=== PATIENT | male | born 1965 | race Caucasian/White ===

== ENCOUNTER 2018-10-15 10:11 | Emergency (ER) | payer OTHER ==
[~2018-10-15] VITALS: Ht 175.3 cm; Wt 75.0 kg
[~2018-10-15 10:11] MED LIST: OTC MED
[2018-10-15] MEDS ORDERED: LORAZEPAM 2MG/ML CPJ IV ONE (10:45)
[2018-10-15 11:30] LABS: BASOPHILS % 1.3 % (0.0-2.0); EOSINOPHILS % 1.7 % (0.0-5.0); HEMATOCRIT. 47.2 % (42.0-52.0); HEMOGLOBIN. 16.7 g/dL (14.0-18.0); LYMPHOCYTES % 19.9 % (20.0-50.0); MEAN CORPUSCULAR HEMOGLOBIN 36.5 pg (28.0-32.0); MEAN CORPUSCULAR VOLUME 103.2 fL (80.0-94.0); MEAN PLATELET VOLUME 7.8 fl (7.4-10.4); MONOCYTES % 12.4 % (2.0-8.0); NEUTROPHILS % 64.7 % (40.0-76.0); PLATELET 203 x1000/uL (130-400); RED BLOOD CELL COUNT 4.57 mill/uL (4.7-6.1); RED CELL DISTRIBUTION WIDTH 14.1 % (11.6-14.6)
[2018-10-15 11:36] LABS: CHLORIDE 102 mEq/L (98-107)
[2018-10-15 11:40] LABS: ETHANOL BLOOD 62 mg/dL
[2018-10-15 11:43] LABS: *AMPHETAMINES SCREEN URINE NEGATIVE (NEGATIVE); *BARBITURATES SCREEN URINE NEGATIVE (NEGATIVE); *BENZODIAZEPINES SCREEN URINE NEGATIVE (NEGATIVE); *COCAINE SCREEN URINE NEGATIVE (NEGATIVE)
[2018-10-15 11:44] LABS: CANNABINOID URINE SCREEN NEGATIVE (NEGATIVE); METHADONE URINE SCREEN NEGATIVE (NEGATIVE); OPIATES URINE SCREEN NEGATIVE (NEGATIVE); PHENCYCLIDINE URINE SCREEN NEGATIVE (NEGATIVE)
[2018-10-15 15:00] VITALS: BP 145/85
== END 2018-10-15 16:17 | disposition home or self-care (01) ==
LOC: ER 10:11
DX: F10.20 Alcohol dependence, uncomplicated (principal); I10 Essential (primary) hypertension; Y90.3 Blood alcohol level of 60-79 mg/100 ml
CPT/HCPCS: 36415; 71045; 80053; 80305; 80320; 83690; 83880; 84484; 85025; 93005; 96374; 99284; J2060; G0480

== ENCOUNTER 2021-04-22 09:20 | Emergency (ER) | payer OTHER ==
[~2021-04-22] VITALS: Ht 175.3 cm; Wt 77.0 kg
[2021-04-22 10:33] LABS: BASOPHILS % 2.7 % (0.0-2.0); EOSINOPHILS % 0.9 % (0.0-5.0); HEMATOCRIT. 44.9 % (42.0-52.0); HEMOGLOBIN. 15.1 g/dL (14.0-18.0); LYMPHOCYTES % 24.7 % (20.0-50.0); MEAN CORPUSCULAR HEMOGLOBIN 36.6 pg (28.0-32.0); MEAN CORPUSCULAR VOLUME 108.8 fL (80.0-94.0); MEAN PLATELET VOLUME 8.4 fl (7.4-10.4); MONOCYTES % 8.1 % (2.0-8.0); NEUTROPHILS % 63.6 % (40.0-76.0); PLATELET 122 x1000/uL (130-400); RED BLOOD CELL COUNT 4.13 mill/uL (4.7-6.1); RED CELL DISTRIBUTION WIDTH 13.3 % (11.6-14.6)
[2021-04-22 10:40] LABS: CHLORIDE 97 mEq/L (98-107)
[2021-04-22 11:52] VITALS: BP 108/63
== END 2021-04-22 12:12 | disposition home or self-care (01) ==
LOC: ER 09:34
DX: R06.00 Dyspnea, unspecified (principal); F10.20 Alcohol dependence, uncomplicated; Y90.9 Presence of alcohol in blood, level not specified; I10 Essential (primary) hypertension
CPT/HCPCS: 36415; 71045; 80053; 83880; 84484; 85025; 99284

== ENCOUNTER 2021-05-08 09:16 | Emergency (ER) | payer OTHER ==
[~2021-05-08] VITALS: Ht 162.6 cm; Wt 88.0 kg
[2021-05-08] MEDS ORDERED: METHOCARBAMOL 500MG TABLET PO ONE (09:45)
[2021-05-08] MEDS ORDERED: IBUPROFEN 800MG TABLET PO ONE (09:45)
[2021-05-08 11:35] VITALS: BP 160/85
[2021-05-08] MEDS ORDERED: NAPR-679 MT (11:40)
[2021-05-08] MEDS ORDERED: METH-773 MT (11:40)
== END 2021-05-08 11:40 | disposition home or self-care (01) ==
LOC: ER 09:16
DX: S20.211A Contusion of right front wall of thorax, initial encounter (principal); I10 Essential (primary) hypertension; F17.210 Nicotine dependence, cigarettes, uncomplicated; F10.20 Alcohol dependence, uncomplicated; Y90.9 Presence of alcohol in blood, level not specified; Z71.6 Tobacco abuse counseling; W01.0XXA Fall on same level from slipping, tripping and stumbling without subsequent striking against object, initial encounter; Y93.89 Activity, other specified; Y92.89 Other specified places as the place of occurrence of the external cause
CPT/HCPCS: 71101; 99283; 99406

== ENCOUNTER 2021-05-23 20:22 | Emergency (ER) | payer OTHER ==
[~2021-05-23] VITALS: Ht 177.8 cm; Wt 82.0 kg
[~2021-05-23 20:22] MED LIST changes: +METH-773 MT; +NAPR-679 MT
[2021-05-23] MEDS ORDERED: SODIUM CHLORIDE 0.9% 1,000 ML IV ONE (20:45)
[2021-05-23] MEDS ORDERED: LIDOCAINE 5% PATCH TOP SCH (20:45)
[2021-05-23 21:06] LABS: HEMATOCRIT. 39.4 % (42.0-52.0); HEMOGLOBIN. 13.8 g/dL (14.0-18.0); MEAN CORPUSCULAR HEMOGLOBIN 36.7 pg (28.0-32.0); MEAN CORPUSCULAR VOLUME 105.1 fL (80.0-94.0); MEAN PLATELET VOLUME 7.7 fl (7.4-10.4); PLATELET 131 x1000/uL (130-400); RED BLOOD CELL COUNT 3.75 mill/uL (4.7-6.1); RED CELL DISTRIBUTION WIDTH 13.9 % (11.6-14.6)
[2021-05-23 21:14] LABS: CHLORIDE 100 mEq/L (98-107)
[2021-05-23 21:19] LABS: PLATELET ESTIMATE NORMAL
[2021-05-23 21:31] LABS: ETHANOL BLOOD 465 mg/dL
[2021-05-24] MEDS ORDERED: LIDO700A15 TP (01:39)
[2021-05-24] MEDS ORDERED: IBUP-2029 MT (01:39)
[2021-05-24] MEDS ORDERED: KETOROLAC 15MG/ML VIAL IV SCH (01:45)
[2021-05-24] MEDS ORDERED: CHLORDIAZEPOXIDE 25MG CAPSULE PO ONE (08:15)
[2021-05-24 08:30] VITALS: BP 150/74
== END 2021-05-24 08:37 | disposition home or self-care (01) ==
LOC: ER 20:22
DX: S22.41XA Multiple fractures of ribs, right side, initial encounter for closed fracture (principal); X58.XXXA Exposure to other specified factors, initial encounter; Y93.89 Activity, other specified; Y92.89 Other specified places as the place of occurrence of the external cause; Y99.8 Other external cause status; F10.229 Alcohol dependence with intoxication, unspecified; I10 Essential (primary) hypertension; Z79.899 Other long term (current) drug therapy; Y90.8 Blood alcohol level of 240 mg/100 ml or more
CPT/HCPCS: 36415; 71250; 80053; 80307; 80320; 80329; 85025; 96361; 96374; 99285; J1885; J7030; G0480

== ENCOUNTER 2021-06-03 18:22 | Emergency (ER) | payer OTHER ==
[~2021-06-03] VITALS: Ht 175.3 cm; Wt 75.0 kg
[~2021-06-03 18:22] MED LIST changes: +IBUP-2029 MT; +LIDO700A15 TP
[2021-06-03 18:23] VITALS: BP 124/68
== END 2021-06-03 20:48 | disposition left against medical advice (07) ==
LOC: ER 18:22
DX: F10.229 Alcohol dependence with intoxication, unspecified (principal); Y90.9 Presence of alcohol in blood, level not specified; I10 Essential (primary) hypertension; L40.9 Psoriasis, unspecified
CPT/HCPCS: 99283

== ENCOUNTER 2021-06-25 12:53 | Emergency (ER) | payer OTHER ==
[~2021-06-25] VITALS: Ht 175.3 cm; Wt 77.0 kg
[2021-06-25 12:58] VITALS: BP 114/67
[2021-06-25] MEDS ORDERED: SODIUM CHLORIDE 0.9% 1,000 ML IV ONE (14:45)
[2021-06-25 14:57] LABS: BASOPHILS % 2.8 % (0.0-2.0); EOSINOPHILS % 3.5 % (0.0-5.0); HEMATOCRIT. 38.4 % (42.0-52.0); HEMOGLOBIN. 13.3 g/dL (14.0-18.0); LYMPHOCYTES % 24.4 % (20.0-50.0); MEAN CORPUSCULAR HEMOGLOBIN 36.2 pg (28.0-32.0); MEAN CORPUSCULAR VOLUME 104.7 fL (80.0-94.0); MEAN PLATELET VOLUME 7.2 fl (7.4-10.4); MONOCYTES % 12.1 % (2.0-8.0); NEUTROPHILS % 57.2 % (40.0-76.0); PLATELET 173 x1000/uL (130-400); RED BLOOD CELL COUNT 3.67 mill/uL (4.7-6.1); RED CELL DISTRIBUTION WIDTH 14.8 % (11.6-14.6)
[2021-06-25] MEDS ORDERED: TETANUS, DIPHTHERIA, PERTUSSIS VAC/PF 0.5ML (>10YR OLD) IM ONE (15:00)
[2021-06-25 15:22] LABS: CHLORIDE 107 mEq/L (98-107)
[2021-06-25 16:05] LABS: ETHANOL BLOOD 444 mg/dL
== END 2021-06-25 18:05 | disposition left against medical advice (07) ==
LOC: ER 12:53
DX: F10.129 Alcohol abuse with intoxication, unspecified (principal); I10 Essential (primary) hypertension; Y90.8 Blood alcohol level of 240 mg/100 ml or more
CPT/HCPCS: 36415; 70450; 80053; 80320; 85025; 99284; J7030; G0480

== ENCOUNTER 2021-10-08 15:25 | Emergency (ER) | payer OTHER ==
[~2021-10-08] VITALS: Ht 175.3 cm; Wt 73.0 kg
[2021-10-08 15:57] VITALS: BP 144/90
== END 2021-10-08 20:20 | disposition left against medical advice (07) ==
LOC: ER 15:25
DX: Z53.21 Procedure and treatment not carried out due to patient leaving prior to being seen by health care provider (principal)

== ENCOUNTER 2021-10-12 22:11 | Inpatient (IN) | payer OTHER ==
[~2021-10-12] VITALS: Ht 170.2 cm; Wt 77.1 kg
[2021-10-13] MEDS ORDERED: SODIUM CHLORIDE 0.9% 1,000 ML IV ONE
[2021-10-13 02:31] LABS: BASOPHILS % 3.6 % (0.0-2.0); EOSINOPHILS % 4.3 % (0.0-5.0); HEMATOCRIT. 42.9 % (42.0-52.0); HEMOGLOBIN. 14.7 g/dL (14.0-18.0); LYMPHOCYTES % 27.2 % (20.0-50.0); MEAN CORPUSCULAR HEMOGLOBIN 33.9 pg (28.0-32.0); MEAN CORPUSCULAR VOLUME 98.9 fL (80.0-94.0); MEAN PLATELET VOLUME 8.4 fl (7.4-10.4); MONOCYTES % 10.8 % (2.0-8.0); NEUTROPHILS % 54.1 % (40.0-76.0); PLATELET 128 x1000/uL (130-400); RED BLOOD CELL COUNT 4.34 mill/uL (4.7-6.1); RED CELL DISTRIBUTION WIDTH 16.9 % (11.6-14.6)
[2021-10-13 02:37] LABS: CHLORIDE 97 mEq/L (98-107)
[2021-10-13 03:09] LABS: CLARITY URINE CLEAR (CLEAR); COLOR URINE YELLOW (YELLOW); KETONES URINE NEGATIVE (NEGATIVE); LEUKOCYTE ESTERASE URINE NEGATIVE (NEGATIVE); NITRITE URINE NEGATIVE (NEGATIVE); OCCULT BLOOD URINE NEGATIVE (NEGATIVE); PH URINE 6.5 (4.5-8.0); PROTEIN URINE NEGATIVE (NEGATIVE); SPECIFIC GRAVITY URINE 1.008 (1.005-1.030)
[2021-10-13] MEDS ORDERED: CEFTRIAXONE 1 G PREMIX 50 ML IV ONE (05:00)
[2021-10-13] MEDS ORDERED: SODIUM CHLORIDE 0.9% 1000ML BAG (SEPSIS BOLUS) IV ONE (05:00)
[2021-10-13] MEDS ORDERED: AZITHROMYCIN 500MG/250ML 250 ML IV ONE (05:00)
[2021-10-13 16:45] VITALS: BP 142/85
[2021-10-13] MEDS ORDERED: ONDANSETRON HCL 4MG/2ML INJ IV PRN (19:45)
[2021-10-13] MEDS ORDERED: SODIUM CHLORIDE 0.9% 1,000 ML IV SCH (19:45)
[2021-10-13] MEDS ORDERED: THIAMINE HCL 100MG TABLET PO NR (19:45)
[2021-10-13] MEDS ORDERED: CLONIDINE 0.1MG TABLET PO PRN (19:45)
[2021-10-13 20:00] VITALS: BP 125/75
[2021-10-13] MEDS: FOLIC ACID 1MG TABLET PO SCH (21:04)
[2021-10-13] MEDS: MULTIVITAMINS,THER W-MINERALS TABLET PO SCH (21:04)
[2021-10-13] MEDS: LORAZEPAM 1MG TABLET PO PRN (21:04)
[2021-10-13] MEDS: CHLORDIAZEPOXIDE 25MG CAPSULE PO SCH (22:44)
[2021-10-14] VITALS: BP 110/88
[2021-10-14 04:00] VITALS: BP 118/78
[2021-10-14] MEDS: CHLORDIAZEPOXIDE 25MG CAPSULE PO SCH ×3 (05:26→21:26)
[2021-10-14 06:48] LABS: BASOPHILS % 1.3 % (0.0-2.0); HEMATOCRIT. 37.3 % (42.0-52.0); HEMOGLOBIN. 12.9 g/dL (14.0-18.0); MEAN CORPUSCULAR HEMOGLOBIN 34.4 pg (28.0-32.0); MEAN CORPUSCULAR VOLUME 99.4 fL (80.0-94.0); MONOCYTES % 12.4 % (2.0-8.0); NEUTROPHILS % 63.3 % (40.0-76.0); PLATELET 99 x1000/uL (130-400); RED BLOOD CELL COUNT 3.75 mill/uL (4.7-6.1); RED CELL DISTRIBUTION WIDTH 16.6 % (11.6-14.6)
[2021-10-14 07:37] LABS: CHLORIDE 96 mEq/L (98-107)
[2021-10-14 08:00] VITALS: BP_SYST 114; BP_SYST 99; BP_DIAS 74; BP_DIAS 78
[2021-10-14] MEDS: THIAMINE HCL 100MG TABLET PO SCH (09:58)
[2021-10-14] MEDS: FOLIC ACID 1MG TABLET PO SCH (09:58)
[2021-10-14] MEDS: MULTIVITAMINS,THER W-MINERALS TABLET PO SCH (09:59)
[2021-10-14 12:00] VITALS: BP 113/69
[2021-10-14 16:00] VITALS: BP 109/80
[2021-10-14 20:00] VITALS: BP 98/59
[2021-10-15] VITALS: BP 113/74
[2021-10-15 04:00] VITALS: BP 134/92
[2021-10-15] MEDS: CHLORDIAZEPOXIDE 25MG CAPSULE PO SCH ×2 (05:31→14:58)
[2021-10-15] MEDS: THIAMINE HCL 100MG TABLET PO SCH (10:16)
[2021-10-15] MEDS: LORAZEPAM 1MG TABLET PO PRN ×2 (10:16→14:58)
[2021-10-15] MEDS: MULTIVITAMINS,THER W-MINERALS TABLET PO SCH (10:21)
[2021-10-15] MEDS: FOLIC ACID 1MG TABLET PO SCH (10:21)
[2021-10-15 16:42] VITALS: BP 120/84
== END 2021-10-15 17:50 | disposition home or self-care (01) | DRG 641 ==
LOC: ER 22:11 → 6WST 10-13 05:03
PROVIDERS: ADMIT Internal Medicine; ATTEND Internal Medicine
DX: E87.6 Hypokalemia (principal); F10.239 Alcohol dependence with withdrawal, unspecified; E87.1 Hypo-osmolality and hyponatremia; E87.2 Acidosis; I10 Essential (primary) hypertension; I71.4 Abdominal aortic aneurysm, without rupture; K76.9 Liver disease, unspecified; R74.8 Abnormal levels of other serum enzymes; Z20.822 Contact with and (suspected) exposure to COVID-19; W19.XXXA Unspecified fall, initial encounter
CPT/HCPCS: 36415; 71045; 80048; 80053; 81003; 83605; 84145; 84484; 85025; 87426; 93005; 99291; C9803; J0456; J0696; J7030

== ENCOUNTER 2021-10-18 01:43 | Emergency (ER) | payer OTHER ==
[~2021-10-18] VITALS: Ht 175.3 cm; Wt 80.0 kg
[2021-10-18 03:13] LABS: HEMATOCRIT. 33.1 % (42.0-52.0); HEMOGLOBIN. 11.5 g/dL (14.0-18.0); MEAN CORPUSCULAR HEMOGLOBIN 34.9 pg (28.0-32.0); MEAN CORPUSCULAR VOLUME 100.5 fL (80.0-94.0); MEAN PLATELET VOLUME 8.2 fl (7.4-10.4); PLATELET 157 x1000/uL (130-400); RED CELL DISTRIBUTION WIDTH 17.3 % (11.6-14.6)
[2021-10-18 03:25] LABS: PROTHROMBIN TIME 11.2 sec (9.6-11.0)
[2021-10-18 03:26] LABS: CHLORIDE 104 mEq/L (98-107)
[2021-10-18 03:34] LABS: ETHANOL BLOOD 229 mg/dL
[2021-10-18 03:45] LABS: PLATELET ESTIMATE NORMAL
[2021-10-18 14:00] VITALS: BP 132/82
== END 2021-10-18 15:48 | disposition home or self-care (01) ==
LOC: ER 01:43
DX: G92.9 Unspecified toxic encephalopathy (principal); F10.10 Alcohol abuse, uncomplicated; I10 Essential (primary) hypertension; Y90.7 Blood alcohol level of 200-239 mg/100 ml
CPT/HCPCS: 36415; 80053; 80320; 85025; 86850; 86900; 99285; G0480

== ENCOUNTER 2021-10-27 07:46 | Emergency (ER) | payer OTHER ==
[~2021-10-27] VITALS: Ht 172.7 cm; Wt 77.0 kg
[2021-10-27 08:34] LABS: HEMATOCRIT. 35.4 % (42.0-52.0); HEMOGLOBIN. 11.8 g/dL (14.0-18.0); MEAN CORPUSCULAR HEMOGLOBIN 35.5 pg (28.0-32.0); MEAN CORPUSCULAR VOLUME 105.9 fL (80.0-94.0); MEAN PLATELET VOLUME 7.3 fl (7.4-10.4); PLATELET 207 x1000/uL (130-400); RED BLOOD CELL COUNT 3.34 mill/uL (4.7-6.1); RED CELL DISTRIBUTION WIDTH 18.1 % (11.6-14.6)
[2021-10-27 08:39] LABS: CHLORIDE 107 mEq/L (98-107)
[2021-10-27 08:55] LABS: ETHANOL BLOOD 352 mg/dL
[2021-10-27 10:47] VITALS: BP 128/90
[2021-10-27 11:39] LABS: PLATELET ESTIMATE NORMAL
== END 2021-10-27 11:20 | disposition home or self-care (01) ==
LOC: ER 08:12
DX: F10.229 Alcohol dependence with intoxication, unspecified (principal); Y90.8 Blood alcohol level of 240 mg/100 ml or more; I10 Essential (primary) hypertension; Z79.899 Other long term (current) drug therapy
CPT/HCPCS: 36415; 80053; 80320; 85025; 99284; G0480

== ENCOUNTER 2021-10-31 08:57 | Emergency (ER) | payer OTHER ==
[~2021-10-31] VITALS: Ht 170.2 cm; Wt 69.0 kg
[2021-10-31 09:30] VITALS: BP 138/99
[2021-10-31] MEDS ORDERED: SODIUM CHLORIDE 0.9% 1,000 ML IV ONE (09:30)
[2021-10-31 10:16] LABS: BASOPHILS % 2.3 % (0.0-2.0); EOSINOPHILS % 6.5 % (0.0-5.0); HEMATOCRIT. 39.4 % (42.0-52.0); HEMOGLOBIN. 13.2 g/dL (14.0-18.0); MEAN CORPUSCULAR HEMOGLOBIN 35.3 pg (28.0-32.0); MEAN PLATELET VOLUME 7.3 fl (7.4-10.4); MONOCYTES % 9.6 % (2.0-8.0); NEUTROPHILS % 61.6 % (40.0-76.0); PLATELET 208 x1000/uL (130-400); RED BLOOD CELL COUNT 3.75 mill/uL (4.7-6.1); RED CELL DISTRIBUTION WIDTH 18.6 % (11.6-14.6)
[2021-10-31 10:21] LABS: CHLORIDE 107 mEq/L (98-107)
[2021-10-31 10:31] LABS: ETHANOL BLOOD 189 mg/dL
[2021-10-31] MEDS ORDERED: CHLORDIAZEPOXIDE 25MG CAPSULE PO ONE (10:45)
== END 2021-10-31 13:07 | disposition home or self-care (01) ==
LOC: ER 08:57
DX: R07.89 Other chest pain (principal); T51.0X1A Toxic effect of ethanol, accidental (unintentional), initial encounter; Y92.89 Other specified places as the place of occurrence of the external cause; I10 Essential (primary) hypertension; Z79.899 Other long term (current) drug therapy
CPT/HCPCS: 36415; 80053; 80320; 84484; 85025; 96360; 99283; J7030; G0480

== ENCOUNTER 2023-06-11 10:31 | Emergency (ER) | payer MEDICAID, OTHER ==
[~2023-06-11] VITALS: Ht 175.3 cm; Wt 81.0 kg
[2023-06-11 10:32] VITALS: O2SAT 99
[2023-06-11 11:10] LABS: EOSINOPHILS % 0.4 % (0.0-5.0); HEMATOCRIT. 48.3 % (42.0-52.0); HEMOGLOBIN. 16.6 g/dL (14.0-18.0); LYMPHOCYTES % 27.8 % (20.0-50.0); MEAN CORPUSCULAR HGB CONC 34.4 g/dL (31.0-37.0); MEAN CORPUSCULAR VOLUME 95.9 fL (80.0-94.0); MEAN PLATELET VOLUME 7.2 fl (7.4-10.4); MONOCYTES % 9.6 % (2.0-8.0); NEUTROPHILS % 61.2 % (40.0-76.0); PLATELET 234 x1000/uL (130-400); RED BLOOD CELL COUNT 5.03 mill/uL (4.7-6.1); WHITE BLOOD COUNT 8.8 x1000/uL (4.5-11.0)
[2023-06-11 11:40] LABS: ALANINE AMINOTRANSFERASE 35 IU/L (10-49); ALBUMIN 4.4 g/dL (3.2-4.8); ASPARTATE AMINOTRANSFERASE 45 IU/L (<34); CALCIUM 8.7 mg/dL (8.7-10.4); CARBON DIOXIDE 23 mEq/L (21-32); CHLORIDE 97 mEq/L (98-107); ETHANOL BLOOD 288 mg/dL (<10); GLUCOSE 156 mg/dL (70-105); POTASSIUM 3.7 mEq/L (3.5-5.1); PROTEIN TOTAL 8.1 g/dL (6.0-8.3); SODIUM 135 mEq/L (136-145); UREA NITROGEN BLOOD 6 mg/dL (9-23)
[2023-06-11] MEDS: ACETAMINOPHEN 325MG TABLET PO ONE (11:47)
[2023-06-11 14:33] LABS: CLARITY URINE CLEAR (CLEAR); COLOR URINE DARK YELLOW (YELLOW); GLUCOSE URINE NEGATIVE (NEGATIVE); KETONES URINE 1+ (NEGATIVE); LEUKOCYTE ESTERASE URINE TRACE (NEGATIVE); NITRITE URINE NEGATIVE (NEGATIVE); OCCULT BLOOD URINE NEGATIVE (NEGATIVE); PROTEIN URINE 2+ (NEGATIVE); SPECIFIC GRAVITY URINE 1.033 (1.005-1.030)
[2023-06-11 14:43] LABS: SQUAMOUS EPITHELIAL CELL URINE FEW /lpf (RARE/1+)
[2023-06-11 14:44] LABS: MUCUS URINE 3+ /lpf (NONE/TRACE); RBC URINE NONE SEEN /hpf (0-2); WBC URINE 0-2 /hpf (0-2)
[2023-06-11 14:45] LABS: BACTERIA URINE TRACE
[2023-06-11] MEDS ORDERED: ACET-2708 MT (15:19)
[2023-06-11 16:24] VITALS: BP 156/90; PULSE 95; RESP 16; TEMP 97.8
== END 2023-06-11 16:26 | disposition home or self-care (01) ==
LOC: ER 11:04
DX: K44.9 Diaphragmatic hernia without obstruction or gangrene (principal); I70.90 Unspecified atherosclerosis; R10.817 Generalized abdominal tenderness; R07.89 Other chest pain; F10.20 Alcohol dependence, uncomplicated; F19.90 Other psychoactive substance use, unspecified, uncomplicated; I10 Essential (primary) hypertension; Y90.8 Blood alcohol level of 240 mg/100 ml or more
CPT/HCPCS: 80053; 81003; 80320; 83690; 85025; 36415; 71045; 74176; 99284; Z7610; G0480